=== PATIENT | male | born 1980 | race Caucasian/White ===

== ENCOUNTER 2017-01-02 11:36 | Emergency (ER) | payer BC ==
[2017-01-02 11:52] VITALS: BP 157/108
[2017-01-02] MEDS ORDERED: Acetaminophen/oxyCODONE 325-5 MG Tab PO ONE (12:24)
[2017-01-02] MEDS ORDERED: Penicillin V Potassium 500 MG Tab PO STA (12:24)
--- NOTE | 2017-01-02 12:31 | EDM.PDOC ---
ED HPI GENERAL MEDICAL PROBLEM - General Chief Complaint: ENT Problem Stated Complaint: DENTAL COMPLAINT Time Seen by Provider: 01/02/17 12:16 Source of Information: Reports: Patient History Limitations: Reports: No Limitations - History of Present Illness INITIAL COMMENTS - FREE TEXT/NARRATIVE: 36 year old male presents for evaluation and treatment of dental pain. Patient reports the pain has been present for the last month. States the pain is present to the left lower side. He has been unable to seen dental as he is currently in between dental insurance carriers. Patient reports he is starting to develop neck discomfort and feels it is harder for him to breath. Reports associated symptoms of bilateral ear pain and sinus pressure. He is unsure if he has had any fevers. Denies any nausea, vomiting or headaches. He has been alternating between tylenol and motrin for pain relief but this is no longer controlling his pain adequately. Patient reports last dental visit was last winter. At that time, reportedly the dentist was trying to save this molar. 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 Lower Tooth/Teeth Pain Score (Numeric/FACES): 10 - Related Data Allergies Allergy/AdvReac Type Severity Reaction Status Date / Time No Known Allergies Allergy Verified 01/02/17 11:48 Home Meds: Home Meds Acetaminophen/oxyCODONE [Percocet 325-5 MG] 1 tab PO Q6H PRN #20 tablet [Rx] [place] Carbonate 300 mg PO BID 01/02/17 [History] Penicillin V Potassium 500 mg PO Q6HR #39 tab 01/02/17 [Rx] Social & Family History - Tobacco Use Smoking Status *Q: Current Every Day Smoker Years of Tobacco use: 20 Packs/Tins Daily: 0.6 Used Tobacco, but Quit: No Second Hand Smoke Exposure: No - Caffeine Use Caffeine Use: Reports: Coffee - Recreational Drug Use Recreational Drug Use: No ED ROS ENT - Review of Systems Review Of Systems: See Below Constitutional: Denies: Fever (unsure; has not taken temp) HEENT: Reports: Dental Pain (left lower molars ), Ear Pain (bilateral), Sinus Problem (bilateral) Respiratory: Reports: Shortness of Breath GI/Abdominal: Denies: Nausea, Vomiting Neurological: Denies: Headache ED EXAM, ENT - Physical Exam Exam: See Below Exam Limited By: No Limitations General Appearance: Alert, WD/WN, No Apparent Distress Eye Exam: Bilateral Eye: PERRL Ears: Normal External Exam, Normal Canal, Normal TMs Nose: Normal Inspection Mouth/Throat: Normal Inspection, Normal Lips, Dental Abcess (#18 & 19), Dental Pain (#18 and 19), Dental Tenderness (#18 & 19), Gum Swelling (#19 and #18), Other (multiple carries and decay; diffuse gingivitis) Neck: Normal Inspection, Supple, Non-Tender, Full Range of Motion, Other (no neck swelling or erythema appreciated) Respiratory/Chest: No Respiratory Distress, Lungs Clear, Normal Breath Sounds, No Accessory Muscle Use Cardiovascular: Normal Peripheral Pulses, Regular Rate, Rhythm, No Murmur Neurological: Alert, Oriented, Normal Cognition Psychiatric: Normal Affect, Normal Mood Skin: Warm, Dry, Normal Color Course - Vital Signs Last Recorded V/S: Last Vital Signs Temp 36.3 C 01/02/17 11:48 Pulse 77 01/02/17 11:48 Resp 18 01/02/17 11:48 BP 157/108 H 01/02/17 11:48 Pulse Ox 96 01/02/17 11:48 - Orders/Labs/Meds Meds: Medications Discontinued Medications Generic Name Dose Route Start Last Admin Trade Name Freq PRN Reason Stop Dose Admin Oxycodone/Acetaminophen 1 tab 01/02/17 12:24 01/02/17 12:42 Percocet 325-5 Mg PO 01/02/17 12:25 1 tab ONETIME ONE Administration Penicillin V Potassium 500 mg 01/02/17 12:24 01/02/17 12:42 Veetids PO 01/02/17 12:25 500 mg NOW STA Administration Departure - Departure Time of Disposition: 12:27 Disposition: Home, Self-Care 01 Condition: Fair Clinical Impression: Dental abscess - Discharge Information Prescriptions: Penicillin V Potassium 500 mg PO Q6HR #39 tab Acetaminophen/oxyCODONE [Percocet 325-5 MG] 1 tab PO Q6H PRN #20 tablet PRN Reason: Pain Instructions: Dental Abscess, [id number] Referrals: PCP,None [Primary Care Provider] - Forms: ED Department Discharge, Return to Work/School Form Additional Instructions: you were given medication the ER that can affect your ability to drive and operate machinery. No driving or operating machinery within 12 hours of taking narcotic pain medication. Take the penicillin as prescribed. 1 tab every 6 hours for 10 days. your first dose was given in the ER. I recommend he take this with food. Percocet 1-2 tabs every 4-6 hours as needed for severe pain. No driving or operating machinery within 12 hours of taking the Percocet. Percocet can be habit-forming, I recommend you take as few of these as needed to control your pain. Do not take more than 4 g of Tylenol from all sources in 1 day. may take [id number] ibuprofen as needed for less severe pain. Follow-up with her dentist as soon as you are able to. please return to the ER if your symptoms change or worsen.
== END 2017-01-02 12:52 | disposition home or self-care (01) ==
LOC: JD.ED 11:36
DX: K04.7 Periapical abscess without sinus (principal); F17.210 Nicotine dependence, cigarettes, uncomplicated
CPT/HCPCS: 99283; A9270

== ENCOUNTER 2018-02-27 21:24 | Emergency (ER) | payer BC, OTHER ==
[2018-02-27 21:39] VITALS: BP 140/94
[2018-02-27] MEDS ORDERED: Ketorolac 60 MG/2 ML SDV IM ONE (22:18)
[2018-02-27] MEDS ORDERED: cefTRIAXone 1 GM, Lidocaine 1% 2.1 ML IM SCH ×2 (22:30)
--- NOTE | 2018-02-27 22:46 | EDM.PDOC ---
ED HPI GENERAL MEDICAL PROBLEM - General Chief Complaint: ENT Problem Stated Complaint: tooth pain Time Seen by Provider: 02/27/18 21:48 Source of Information: Reports: Patient History Limitations: Reports: No Limitations - History of Present Illness INITIAL COMMENTS - FREE TEXT/NARRATIVE: This is a 37-year-old male. He awoke this evening with pain in his jaw from an abscessed tooth. He states that in about a week's time he is to see the dentist and have his teeth pulled. In the meantime he is wanting something to get rid of the infection and also to help the pain. He denies any fever or chills he denies any other acute symptoms. The tooth involved is the left back molar in the lower jaw. He has no facial asymmetry noted. Left Upper Tooth/Teeth Pain Score (Numeric/FACES): 9 - Related Data Allergies Allergy/AdvReac Type Severity Reaction Status Date / Time No Known Allergies Allergy Verified 01/02/17 11:48 Home Meds: Home Meds [place] Carbonate 300 mg PO BID 01/02/17 [History] Dextroamphetamine/Amphetamine [Adderall] 25 mg PO DAILY 02/27/18 [History] Penicillin V Potassium 500 mg PO Q6HR #28 tab 02/27/18 [Rx] Past Medical History - Past Health History Medical/Surgical History: Denies Medical/Surgical History Psychiatric History: Reports: ADD, Bipolar Social & Family History - Tobacco Use Smoking Status *Q: Current Every Day Smoker Years of Tobacco use: 20 Packs/Tins Daily: 0.4 - Caffeine Use Caffeine Use: Reports: Coffee - Recreational Drug Use Recreational Drug Use: No ED ROS ENT - Review of Systems Review Of Systems: See Below Constitutional: Denies: Fever, Chills HEENT: Reports: Other (As per history of present illness) Respiratory: Reports: No Symptoms Cardiovascular: Reports: No Symptoms Endocrine: Reports: No Symptoms GI/Abdominal: Reports: No Symptoms : Reports: No Symptoms Musculoskeletal: Reports: No Symptoms Skin: Reports: No Symptoms Neurological: Reports: No Symptoms Psychiatric: Reports: No Symptoms ED EXAM, ENT - Physical Exam Exam: See Below Exam Limited By: No Limitations General Appearance: Alert, WD/WN, Mild Distress Eye Exam: Bilateral Eye: Normal Inspection Ears: Normal External Exam Nose: Normal Inspection Mouth/Throat: Normal Inspection, Normal Gums, Normal Lips, Normal Oropharynx, Other (In the left back molar is advanced dental caries but no obvious drainage noted it is tender on palpation, palpation of the left lower jaw skin on the outside does not reveal any abscess bump or swelling of the face) Head: Normocephalic Neck: Normal Inspection, Supple Respiratory/Chest: No Respiratory Distress Back: Full Range of Motion Extremities: Normal Inspection, Normal Range of Motion Neurological: Alert, Oriented Psychiatric: Normal Affect, Normal Mood Skin: Warm, Dry Course - Vital Signs Last Recorded V/S: Last Vital Signs Temp 98.1 F 02/27/18 21:38 Pulse 85 02/27/18 21:38 Resp 20 02/27/18 21:38 BP 140/94 H 02/27/18 21:38 Pulse Ox 95 02/27/18 21:38 - Orders/Labs/Meds Orders: Active Orders 24 hr Category Date Time Status cefTRIAXone [Rocephin] 1 gm Med 02/27/18 22:30 Active Lidocaine 1% [Xylocaine 1%] 2.1 ml IM Q24H Medication Orders Ceftriaxone Sodium 1 gm/ (Lidocaine HCl 2.1 ml) 0 gm IM Q24H AYAH Last Admin: 02/27/18 22:30 Dose: 2.1 inj Meds: Medications Generic Name Dose Route Start Last Admin Trade Name Freq PRN Reason Stop Dose Admin Ceftriaxone Sodium 1 gm/ 0 gm 02/27/18 22:30 02/27/18 22:30 Lidocaine HCl 2.1 ml IM 2.1 inj Q24H AYAH Administration Discontinued Medications Generic Name Dose Route Start Last Admin Trade Name Freq PRN Reason Stop Dose Admin Ketorolac Tromethamine 60 mg 02/27/18 22:18 02/27/18 22:30 Toradol IM 02/27/18 22:19 60 mg ONETIME ONE Administration Departure - Departure Time of Disposition: 22:41 Disposition: Home, Self-Care 01 Condition: Good Clinical Impression: Dental caries, Pain, dental, Infected dental caries - Discharge Information *PRESCRIPTION DRUG MONITORING PROGRAM REVIEWED*: Not Applicable *COPY OF PRESCRIPTION DRUG MONITORING REPORT IN PATIENT KRISS: Not Applicable Prescriptions: Penicillin V Potassium 500 mg PO Q6HR #28 tab Referrals: PCP,None [Primary Care Provider] - Additional Instructions: Use ice or heat to your face to help with the soreness, take Aleve or ibuprofen and Tylenol is needed for the pain and the throbbing, the certain to follow-up with the dentist for your appointment to have your tooth pulled, get the antibiotics tomorrow and start taking them tomorrow evening since the antibiotic shot you received in the ER will last for about 24 hours, return to the ER as needed - My Orders Last 24 Hours: My Active Orders 02/27/18 22:30 cefTRIAXone [Rocephin] 1 gm Lidocaine 1% [Xylocaine 1%] 2.1 ml IM Q24H - Assessment/Plan Last 24 Hours: My Active Orders 02/27/18 22:30 cefTRIAXone [Rocephin] 1 gm Lidocaine 1% [Xylocaine 1%] 2.1 ml IM Q24H
== END 2018-02-27 22:58 | disposition home or self-care (01) ==
LOC: JD.ED 21:24
DX: K02.9 Dental caries, unspecified (principal); F17.210 Nicotine dependence, cigarettes, uncomplicated
CPT/HCPCS: 96372; 99283; J0696; J1885